=== PATIENT | female | born 1995 | race American Indian/Alaskan Native ===

== ENCOUNTER 2017-08-19 22:19 | Emergency (ER) | payer OTHER ==
[2017-08-19 22:27] VITALS: BMI 29.1
[2017-08-19 22:32] VITALS: BP 161/73; PULSE 113; RESP 16; TEMP 97.1; O2SAT 100
[2017-08-19 23:28] LABS: BARBITURATES, UR NEGATIVE (NEGATIVE); BENZODIAZEPINES, UR NEGATIVE (NEGATIVE); OPIATES, UR NEGATIVE (NEGATIVE); PHENCYCLIDINE, UR NEGATIVE (NEGATIVE)
--- NOTE | 2017-08-20 00:51 | ED PDOC ---
HPI: Psych/Substance Abuse Time Seen by Provider: 08/19/17 22:45 Chief Complaint (Nursing): Psychiatric Evaluation Chief Complaint (Provider): Psychiatric Evaluation History Per: Patient History/Exam Limitations: no limitations Current Symptoms Are (Timing): Still Present Suicide/Self Injury Attempted (Context): Cut Wrists (with fingernail) Modifying Factor(s): None Additional Complaint(s): 21 year old female presents to ED for a psychiatric evaluation and has a past medical history of asthma. Patient states she got into an argument with her boyfriend and attempted to cut her wrist with her fingernail. (-) homicidal ideation, hallucinations, or alcohol/drug use. When asked about suicidal ideation patient shrugs her shoulders. PCP: No regular PCP Past Medical History Reviewed: Historical Data, Nursing Documentation, Vital Signs Vital Signs: Last Vital Signs Temp 97.1 F L 08/19/17 22:27 Pulse 113 H 08/19/17 22:27 Resp 16 08/19/17 22:27 BP 161/73 H 08/19/17 22:27 Pulse Ox 100 08/19/17 22:27 - Medical History PMH: Asthma - Surgical History Surgical History: No Surg Hx - Family History Family History: States: No Known Family Hx - Social History Current smoker - smoking cessation education provided: No Ex-Smoker (has not smoked in the last 12 months): No Alcohol: None Drugs: Denies - Immunization History Hx Tetanus Toxoid Vaccination: No Hx Influenza Vaccination: No Hx Pneumococcal Vaccination: No - Home Medications Home Medications: Ambulatory Orders Medication Instructions Recorded Albuterol Sulfate [Albuterol Hfa] 2 puff IH Q4H #1 bottle 07/16/13 Flovent Hfa 07/16/13 Singulair 07/16/13 Ventolin 07/16/13 methylPREDNISolone [Medrol 4 mg 4 mg PO DAILY #21 tab 07/16/13 Dosepak(21)] - Allergies Allergies/Adverse Reactions: Allergies Allergy/AdvReac Type Severity Reaction Status Date / Time PORK Allergy RASH Verified 08/19/17 22:27 cream dairy Allergy RASH Uncoded 08/19/17 22:27 Review of Systems ROS Statement: Except As Marked, All Systems Reviewed And Found Negative Psych: Positive for: Suicidal ideation. Negative for: Psychosis, Other ((-) homicidal ideation) Physical Exam - Reviewed Nursing Documentation Reviewed: Yes Vital Signs Reviewed: Yes - Physical Exam Appears: Positive for: Non-toxic, No Acute Distress Head Exam: Positive for: ATRAUMATIC, NORMOCEPHALIC Skin: Positive for: Warm, Dry (superficial abrasions to RIGHT anterior wrist) Eye Exam: Positive for: EOMI, PERRL Neck: Positive for: Painless ROM, Supple Cardiovascular/Chest: Positive for: Regular Rate, Rhythm. Negative for: Murmur Respiratory: Positive for: Normal Breath Sounds. Negative for: Respiratory Distress Gastrointestinal/Abdominal: Positive for: Soft. Negative for: Tenderness Back: Positive for: Normal Inspection. Negative for: Muscle Spasm Extremity: Positive for: Normal ROM. Negative for: Deformity Lymphatic: Negative for: Adenopathy Neurologic/Psych: Positive for: Alert, animal laboratory helper II-XII (intact), Oriented (x3), Mood/ Affect (flat affect). Negative for: Motor/Sensory Deficits - ECG O2 Sat by Pulse Oximetry: 100 (RA) Pulse Ox Interpretation: Normal Medical Decision Making Medical Decision Makin Initial impression: suicidal ideation, adjustment disorder Initial plan: * UDrug * UPreg * 1:1 OBS * Crisis eval [address] Patel pending crisis evaluation and labs. Scribe Attestation: Documented by Emani Corado acting as a scribe for Nikolai Patel DO. MD Scribe Attestation: All medical record entries made by the Scribe were at my direction and personally dictated by me. I have reviewed the chart and agree that the record accurately reflects my personal performance of the history, physical exam, medical decision making, and the department course for this patient. I have also personally directed, reviewed, and agree with the discharge instructions and disposition. Disposition - Clinical Impression Clinical Impression: Adjustment disorder - Disposition Disposition: Transfer of Care Disposition Time: 00:00 Condition: STABLE Patient Signed Over To: Nikolai Patel III Handoff Comments: pending crisis eval and labs
--- NOTE | 2017-08-20 01:55 | ED PDOC ---
- ECG O2 Sat by Pulse Oximetry: 100 (RA) Medical Decision Making Medical Decision Makin Patient endorsed to me by Dr. Clay pending labs and crisis evaluation. [id number] Patient has been seen and cleared by crisis. Referral for outpatient follow up provided. Scribe Attestation: Documented by Emani Corado acting as a scribe for Nikolai Patel DO. Scribe Attestation: All medical record entries made by the Scribe were at my direction and personally dictated by me. I have reviewed the chart and agree that the record accurately reflects my personal performance of the history, physical exam, medical decision making, and the department course for this patient. I have also personally directed, reviewed, and agree with the discharge instructions and disposition. Disposition - Clinical Impression Clinical Impression: Adjustment disorder - Disposition Referrals: [facility] [Outside] Disposition: Routine/Home Disposition Time: 01:55 Condition: STABLE Instructions: Suicide Prevention for Adults (ED) Forms: [email or web address] [facility] ([place])
== END 2017-08-20 02:20 | disposition home or self-care (01) ==
LOC: H.ER 22:19
DX: F43.20 Adjustment disorder, unspecified (principal); R45.851 Suicidal ideations